=== PATIENT | female | born 1995 | race Caucasian/White ===

== ENCOUNTER 2017-07-06 12:32 | Emergency (ER) | payer OTHER ==
[~2017-07-06] VITALS: Ht 177.8 cm; Wt 68.8 kg
[~2017-07-06 12:32] MED LIST: SERT100T
[2017-07-06 13:26] LABS: BLOOD UREA NITROGEN 7 mg/dL (7-18)
[2017-07-06] MEDS ORDERED: HYDROcodone/APAP 5/325 TABLET PO SCH (15:30)
[2017-07-06] MEDS ORDERED: HYDROcodone/APAP 5/325 TABLET PO ONE (15:30)
[2017-07-06] MEDS ORDERED: HYDROcodone/APAP 5/325 TABLET ONE (15:33)
[2017-07-06] MEDS ORDERED: CEFTRIAXONE 250 MG ONE (18:00)
[2017-07-06] MEDS ORDERED: AZITHROMYCIN 250 MG TABLET ONE (18:00)
[2017-07-06] MEDS ORDERED: AZITHROMYCIN 500 MG TABLET PO ONE (18:00)
[2017-07-06] MEDS ORDERED: CEFTRIAXONE 250 MG IM ONE (18:00)
[2017-07-06 18:13] VITALS: BP 103/61
== END 2017-07-06 18:16 | disposition home or self-care (01) ==
LOC: ED 16:14
DX: R10.2 Pelvic and perineal pain (principal)
CPT/HCPCS: 36415; 76830; 80048; 81001; 82040; 84703; 85025; 87086; 87147; 87210; 87491; 87591; 87808; 96372; 99285; J0696